=== PATIENT | female | born 1950 | race Caucasian/White ===

== ENCOUNTER → 2017-07-19 | Outpatient (CLI) | payer MEDICARE, BC ==
[~2017-07-19] MED LIST: CALC1CAP8 PO; DILT60TA30 PO; FLUT1DIS IH; FLUT9.9S NS; ISOS20TA58 PO; LEVA15HF4 INH; LEVO125T PO; LYSI500T25 PO; MONT10TA6 PO; NITR0.4T SL; TRAM50TA2 PO; magnesium PO
[2017-07-19 12:17] LABS: ANION GAP 5 mmol/L (5-15); CALCIUM 8.4 mg/dL (8.5-10.1); CHLORIDE 106 mmol/L (98-107)
[2017-07-19 12:18] LABS: CREATININE 0.93 mg/dL (0.55-1.02)
[2017-07-19 12:59] LABS: BASOPHILS # (AUTO) 0.04 x10^3/uL (0-0.1); BASOPHILS % (AUTO) 1 % (0-1); EOSINOPHILS # (AUTO) 0.08 x10^3/uL (0-0.4); EOSINOPHILS % (AUTO) 1 % (1-7); LYMPHOCYTES # (AUTO) 2.08 x10^3/uL (1-3.4); LYMPHOCYTES % (AUTO) 27 % (22-44); MD SCAN; MEAN CORPUSCULAR HEMOGLOBIN 31.9 pg (27.0-34.8); MEAN CORPUSCULAR HGB CONC 34.1 g/dL (32.4-35.8); MEAN CORPUSCULAR VOLUME 93.7 fL (80-100); MEAN PLATELET VOLUME 11.3 fL (7.4-10.4); MONOCYTES # (AUTO) 0.52 x10^3/uL (0.2-0.8); MONOCYTES % (AUTO) 7 % (2-9); NEUTROPHILS # (AUTO) 5.01 x10^3/uL (1.8-6.8); NEUTROPHILS % (AUTO) 65 % (42-75); PLATELET COUNT 159 x10^3/uL (130-400); RED BLOOD COUNT 4.74 x10^6/uL (3.82-5.3); RED CELL DISTRIBUTION WIDTH 14.3 % (9.6-15.2)
[2017-07-19 13:09] LABS: MICROSCOPIC NOT IND
[2017-07-19 13:14] LABS: CULTURE INDICATED? NO
== END | disposition home or self-care (01) ==
LOC: EDSEX → STAR 10:26 → MERGE 10:30
PROVIDERS: ATTEND Orthopaedic Surgery
DX: Z01.818 Encounter for other preprocedural examination (principal); M17.11 Unilateral primary osteoarthritis, right knee
CPT/HCPCS: 36415; 80048; 81003; 85025; 87081; 93005

== ENCOUNTER → 2018-03-08 | Outpatient (CLI) | payer MEDICARE, BC ==
[~2018-03-08] MED LIST changes: +ASPI-621 PO; +DEXL60CA2 PO; +DILT60CA PO; +FURO-92 PO; +ISOS20TA3 PO; +OXYC5CAP2 PO; +POTA20PA25 PO; +RANI150T4 PO; +ROSU20TA PO
[2018-03-08 11:08] LABS: ALBUMIN 4.1 g/dL (3.4-5.0); ANION GAP 7 mmol/L (5-15); CALCIUM 9.1 mg/dL (8.5-10.1); CHLORIDE 105 mmol/L (98-107)
[2018-03-08 11:11] LABS: ALANINE AMINOTRANSFERASE 21 U/L (12-78); ALKALINE PHOSPHATASE 145 U/L (45-117); BILIRUBIN,TOTAL 0.5 mg/dL (0.2-1.0); CREATININE 1.12 mg/dL (0.55-1.02); TOTAL PROTEIN 7.3 g/dL (6.4-8.2)
== END | disposition home or self-care (01) ==
LOC: STAR 09:43
PROVIDERS: ATTEND Thoracic Surgery (Cardiothoracic Vascular Surgery)
DX: Z01.818 Encounter for other preprocedural examination (principal)
CPT/HCPCS: 36415; 80053; 93005

== ENCOUNTER 2018-03-15 09:25 | Observation (INO) | payer MEDICARE, BC ==
[2018-03-14] MEDS: LACTATED RINGERS 1,000 ML IV SCH (23:30)
[~2018-03-15] VITALS: Ht 165.1 cm; Wt 105.2 kg
[~2018-03-15 09:25] MED LIST changes: +BUPIVACAINE/PF-EPI 0.5% 1:200K ONE
[2018-03-15] MEDS ORDERED: LACTATED RINGERS 1,000 ML IV SCH (10:00)
[2018-03-15] MEDS ORDERED: ACETAMINOPHEN 500 MG TABLET PO STA (10:07)
[2018-03-15] MEDS ORDERED: GABAPENTIN 300 MG CAPSULE PO STA (10:07)
[2018-03-15] MEDS ORDERED: SCOPOLAMINE PATCH, 1.5MG PATCH.TD72 TD STA (10:07)
[2018-03-15] MEDS ORDERED: MIDAZOLAM 1 MG/ML, 2ML ONE (10:26)
[2018-03-15] MEDS ORDERED: FENTANYL PF 250 MCG/5ML ONE (10:27)
[2018-03-15] MEDS ORDERED: PROPOFOL 10 MG/ML, 20ML ONE (10:31)
[2018-03-15] MEDS ORDERED: LIDOCAINE-MPF 2% ,5ML ONE (10:31)
[2018-03-15] MEDS ORDERED: ROCURONIUM 10MG/ML,5ML ONE (10:32)
[2018-03-15] MEDS ORDERED: [UNRECOGNIZED DRUG - OTHER] IVPB ONE (10:56)
[2018-03-15] MEDS ORDERED: DEXAMETHASONE 4 MG/ML, 1ML ONE ×3 (10:56→11:21)
[2018-03-15] MEDS ORDERED: PHENYLEPHRINE 10 MG/ML ONE (10:56)
[2018-03-15] MEDS ORDERED: LABETALOL 5MG/ML, 20ML IV PRN (11:30)
[2018-03-15] MEDS ORDERED: OXYcodone 5 MG/5 ML ORAL.SOL UDC PO PRN (11:30)
[2018-03-15] MEDS ORDERED: PROMETHAZINE 25 MG/ML, 1ML IV PRN (11:30)
[2018-03-15] MEDS ORDERED: HALOPERIDOL 5 MG/ML IV PRN (11:30)
[2018-03-15] MEDS ORDERED: FENTANYL PF 100 MCG/2ML IV PRN (11:30)
[2018-03-15] MEDS ORDERED: hydrALAzine 20 MG/ML, 1ML IV PRN ×2 (11:30→13:00)
[2018-03-15] MEDS ORDERED: HYDROmorphone 1 MG/ML, 1ML IV PRN (11:30)
[2018-03-15] MEDS ORDERED: MEPERIDINE/PF 25MG/0.5ML IVPush PRN (11:30)
[2018-03-15] MEDS ORDERED: ONDANSETRON 2MG/ML, 2ML ONE ×2 (12:08)
[2018-03-15] MEDS ORDERED: FENTANYL PF 100 MCG/2ML ONE (12:40)
[2018-03-15] MEDS ORDERED: morphine SULFATE 10 MG/ML, 1ML IV PRN (13:00)
[2018-03-15] MEDS ORDERED: DIPHENHYDRAMINE 50 MG/ML, 1ML IV PRN (13:00)
[2018-03-15] MEDS ORDERED: PROMETHAZINE 12.5 MG SUPP PR PRN (13:00)
[2018-03-15] MEDS ORDERED: ENALAPRILAT 1.25 MG/ML, 2ML IV PRN (13:00)
[2018-03-15] MEDS ORDERED: PROMETHAZINE 25 MG/ML, 1ML IM PRN (13:00)
[2018-03-15] MEDS ORDERED: HYDROcodone/APAP 7.5-325MG/15ML UDC PO PRN (13:00)
[2018-03-15] MEDS ORDERED: LORazepam 2 MG/ML, 1ML IV PRN (13:00)
[2018-03-15] MEDS ORDERED: ONDANSETRON 2MG/ML, 2ML IVPush PRN (13:00)
[2018-03-15] MEDS ORDERED: OXYcodone 5 MG/5 ML ORAL.SOL UDC ONE (13:03)
[2018-03-15 14:10] VITALS: BP 108/64
[2018-03-15] MEDS: FAMOTIDINE 20 MG/2 ML IV SCH (14:57)
[2018-03-15] MEDS: LACTATED RINGERS 1,000 ML IV SCH ×2 (17:47→23:50)
[2018-03-15] MEDS: ISOSORBIDE MONONITRATE 20 MG TABLET PO SCH (20:42)
[2018-03-15 20:48] VITALS: BP 123/76
[2018-03-15] MEDS ORDERED: TEMPLATE NON-FORMULARY MED. (Rosuvastatin Calcium** (Crestor**) 10 MG) PO SCH (21:00)
[2018-03-15 23:33] VITALS: BP 119/75
[2018-03-16] MEDS: LACTATED RINGERS 1,000 ML IV SCH (01:00)
[2018-03-16] MEDS: FAMOTIDINE 20 MG/2 ML IV SCH (04:09)
[2018-03-16 04:18] VITALS: BP 125/82
[2018-03-16] MEDS ORDERED: LEVOTHYROXINE 125 MCG TABLET PO SCH (06:00)
[2018-03-16 06:44] VITALS: BP 125/80
[2018-03-16] MEDS ORDERED: FLUTICASONE NASAL SPRAY 16GM NAS SCH (09:00)
[2018-03-16] MEDS ORDERED: MONTELUKAST 10 MG TABLET PO SCH (09:00)
[2018-03-16] MEDS ORDERED: FAMOTIDINE 20 MG TABLET PO SCH (09:00)
[2018-03-16] MEDS ORDERED: DILTIAZEM 60 MG CAP.ER.12H PO SCH (09:00)
[2018-03-16] MEDS ORDERED: FLUTICASONE/VILANTEROL 100-25MCG/INH INH SCH (09:00)
[2018-03-16] MEDS ORDERED: ENOXAPARIN 40 MG/0.4 ML SQ SCH (09:00)
[2018-03-16] MEDS: ISOSORBIDE MONONITRATE 20 MG TABLET PO SCH (09:35)
[2018-03-16] MEDS ORDERED: HYDR473S51 PO (13:49)
== END 2018-03-16 14:08 | disposition home or self-care (01) ==
LOC: OUT 09:25 → ORIP 12:52 → 4NOR 14:02 → DCLOUNGE 03-16 13:55
PROVIDERS: ADMIT Thoracic Surgery (Cardiothoracic Vascular Surgery); ATTEND Thoracic Surgery (Cardiothoracic Vascular Surgery)
DX: K44.9 Diaphragmatic hernia without obstruction or gangrene (principal); K21.9 Gastro-esophageal reflux disease without esophagitis; M19.90 Unspecified osteoarthritis, unspecified site; J45.909 Unspecified asthma, uncomplicated; I10 Essential (primary) hypertension; E03.9 Hypothyroidism, unspecified; G43.909 Migraine, unspecified, not intractable, without status migrainosus
CPT/HCPCS: 43282; 96372; 96374; 96376; G0378; J0694; J1100; J2250; J2370; J2405; J2704; J3010; J3490; J7120; Q4116; S0028; J1650

== ENCOUNTER → 2018-12-08 | Outpatient (CLI) | payer MEDICARE, BC ==
[~2018-12-08] MED LIST changes: -ASPI-621 PO; +ASPI81TA45 PO; -BUPIVACAINE/PF-EPI 0.5% 1:200K ONE; +CYAN25009 PO; +HYDR473S51 PO; +MAGNESIUM PO; -NITR0.4T SL; +NITR0.4T41 SL; -ROSU20TA PO; +ROSU20TA2 PO
== END | disposition home or self-care (01) ==
LOC: RAD 07:22
PROVIDERS: ATTEND Thoracic Surgery (Cardiothoracic Vascular Surgery)
DX: K22.4 Dyskinesia of esophagus (principal); R10.13 Epigastric pain; Z98.890 Other specified postprocedural states
CPT/HCPCS: 74241

== ENCOUNTER 2018-12-11 10:16 | Outpatient (CLI) | payer MEDICARE, BC ==
[~2018-12-11 10:16] MED LIST changes: -CYAN25009 PO; -MAGNESIUM PO
[2018-12-11] MEDS ORDERED: CALC1CAP8 PO (10:53)
[2018-12-11] MEDS ORDERED: MAGNESIUM PO (10:53)
[2018-12-11] MEDS ORDERED: ASPI81TA45 PO (10:53)
[2018-12-11] MEDS ORDERED: CYAN25009 PO (10:53)
[2018-12-11] MEDS ORDERED: LYSI500T25 PO (10:53)
[2018-12-11] MEDS ORDERED: LEVA15HF4 INH (11:06)
[2018-12-11 11:39] LABS: BASOPHILS # (AUTO) 0.03 x10^3/uL (0-0.1); BASOPHILS % (AUTO) 1 % (0-1); EOSINOPHILS # (AUTO) 0.12 x10^3/uL (0-0.4); EOSINOPHILS % (AUTO) 2 % (1-7); LYMPHOCYTES # (AUTO) 1.73 x10^3/uL (1-3.4); LYMPHOCYTES % (AUTO) 32 % (22-44); MD NO; MEAN CORPUSCULAR HGB CONC 32.8 g/dL (32.4-35.8); MEAN CORPUSCULAR VOLUME 97.4 fL (80-100); MEAN PLATELET VOLUME 10.8 fL (7.4-10.4); MONOCYTES # (AUTO) 0.36 x10^3/uL (0.2-0.8); MONOCYTES % (AUTO) 7 % (2-9); NEUTROPHILS # (AUTO) 3.23 x10^3/uL (1.8-6.8); NEUTROPHILS % (AUTO) 59 % (42-75); PLATELET COUNT 149 x10^3/uL (130-400); RED BLOOD COUNT 4.37 x10^6/uL (3.82-5.3); RED CELL DISTRIBUTION WIDTH 13.7 % (9.6-15.2)
[2018-12-11 11:51] LABS: ALANINE AMINOTRANSFERASE 33 U/L (12-78); ANION GAP 4 mmol/L (5-15); CHLORIDE 112 mmol/L (98-107); CREATININE 0.99 mg/dL (0.55-1.02)
[2018-12-11 11:53] LABS: ALKALINE PHOSPHATASE 107 U/L (45-117); BILIRUBIN,TOTAL 0.6 mg/dL (0.2-1.0); TOTAL PROTEIN 6.4 g/dL (6.4-8.2)
== END 2018-12-11 23:59 | disposition home or self-care (01) ==
LOC: STAR 10:16
PROVIDERS: ATTEND Orthopaedic Surgery
DX: Z01.818 Encounter for other preprocedural examination (principal); M17.12 Unilateral primary osteoarthritis, left knee; K21.9 Gastro-esophageal reflux disease without esophagitis; J45.909 Unspecified asthma, uncomplicated; G47.30 Sleep apnea, unspecified
CPT/HCPCS: 36415; 80053; 85025; 87081; 93005

== ENCOUNTER 2018-12-18 06:30 | Observation (INO) | payer MEDICARE, BC ==
[~2018-12-18] VITALS: Ht 165.1 cm; Wt 91.5 kg
[2018-12-19 10:42] VITALS: BP 121/69
== END 2018-12-19 11:25 | disposition home or self-care (01) ==
LOC: OR 06:30 → ORIP 10:24 → 4NOR 11:36 → DCLOUNGE 12-19 11:12
PROVIDERS: ADMIT Orthopaedic Surgery; ATTEND Orthopaedic Surgery
DX: M17.12 Unilateral primary osteoarthritis, left knee (principal); J45.909 Unspecified asthma, uncomplicated; K21.9 Gastro-esophageal reflux disease without esophagitis; G47.30 Sleep apnea, unspecified; Z88.5 Allergy status to narcotic agent; Z88.6 Allergy status to analgesic agent; Z88.8 Allergy status to other drugs, medicaments and biological substances; Z79.899 Other long term (current) drug therapy
CPT/HCPCS: 27447; 36415; 73560; 85014; 85018; 96365; 96366; 96375; 96376; 97116; 97150; 97162; C1713; C1776; G0378; J0171; J0330; J0690; J1100; J1170; J1885; J2175; J2250; J2405; J2704; J2765; J2795; J3010; J3490; J7120; S0020; J3370